=== PATIENT | female | born 1985 | race African-American/Black ===

== ENCOUNTER 2016-08-19 22:57 | Emergency (ER) | payer OTHER ==
[~2016-08-19] VITALS: Ht 167.6 cm; Wt 54.4 kg
[2016-08-20] MEDS ORDERED: TDAP DIPH,PERTUSS,TET VAC/PF 0.5 ML DISP.SYRIN IM ONE ×2 (01:00→01:09)
[2016-08-20] MEDS ORDERED: IBUPROFEN 800 MG TABLET PO ONE (01:00)
[2016-08-20] MEDS ORDERED: IBUPROFEN 800 MG TABLET ONE (01:01)
[2016-08-20 01:20] LABS: *BILIRUBIN,URIN NEGATIVE (NEGATIVE); *BLOOD, URINE 1+ (NEGATIVE); *CLARITY,URINE CLOUDY (CLEAR); *COLOR,URINE YELLOW (YELLOW); *KETONES,URINE 2+ (NEGATIVE); *PROTEIN,URINE TRACE (NEGATIVE); LEUKOCYTE ESTERASE ,URINE NEGATIVE (NEGATIVE); NITRITE, URINE POSITIVE (NEGATIVE); UGLUCOSE NEGATIVE (NEGATIVE)
[2016-08-20 01:30] LABS: *URINE HCG, QUAL NEGATIVE (NEGATIVE); BACTERIA,URINE MANY /HPF (NONE SEEN); SQUAMOUS EPITHELIAL CELL,UR MANY /HPF (NONE SEEN)
--- NOTE | 2016-08-20 03:15 | NUR ---
Patient discharged to home in stable conditon. Written and verbal after care instructions given. Patient verbalizes understanding of instructions.
== END 2016-08-20 03:16 | disposition home or self-care (01) ==
LOC: ER 22:59
DX: S06.0X0A Concussion without loss of consciousness, initial encounter (principal); S13.4XXA Sprain of ligaments of cervical spine, initial encounter; R51 Headache; F10.20 Alcohol dependence, uncomplicated; F17.200 Nicotine dependence, unspecified, uncomplicated; Z88.8 Allergy status to other drugs, medicaments and biological substances; V89.2XXA Person injured in unspecified motor-vehicle accident, traffic, initial encounter; Y93.89 Activity, other specified; Y99.8 Other external cause status; Y92.89 Other specified places as the place of occurrence of the external cause
CPT/HCPCS: 70450; 72125; 84703; 90715; A4663

== ENCOUNTER 2016-12-25 23:01 | Emergency (ER) | payer OTHER ==
[~2016-12-25] VITALS: Ht 167.6 cm; Wt 54.4 kg
--- NOTE | 2016-12-25 23:10 | NUR ---
Pt ambulated to room with steady gait. Pt c/o chest pressure and back pain all day. Sts she woke up with worsen pain. Pt placed on monitor NSR, ekg obtained. Pt resting in position of comfort for self, awaiting further eval.
[2016-12-25] MEDS ORDERED: ELVI1TAB3 PO (23:23)
[2016-12-25 23:34] LABS: BASOPHILS # (AUTO) 0.2 K/uL (0.0-8.0); BASOPHILS % (AUTO) 2.3 % (0.0-2.0); EOSINOPHILS % (AUTO) 0.6 % (0.0-7.0); HEMATOCRIT 39.4 % (37-47); HEMOGLOBIN 13.4 G/DL (12.0-16.0); LYMPHOCYTES # (AUTO) 1.7 K/UL (0.8-4.8); LYMPHOCYTES % (AUTO) 26.6 % (20.5-51.5); MEAN CORPUSCULAR HEMOGLOBIN 33.5 UUG (27.0-31.0); MEAN CORPUSCULAR HGB CONC 34 g/dL (32.0-37.0); MEAN CORPUSCULAR VOLUME 98.2 FL (81.0-99.0); MONOCYTES # (AUTO) 0.5 K/UL (0.1-1.30); NEUTROPHILS # (AUTO) 4.1 K/UL (1.8-8.9); NEUTROPHILS % (AUTO) 62.5 % (38.5-71.5); PLATELET COUNT (AUTO) 282 K/UL (150-450); RED BLOOD CELL COUNT(AUTO) 4.01 MIL/UL (4.2-5.4); WHITE BLOOD COUNT (AUTO) 6.5 K/UL (4.0-11.2)
[2016-12-25 23:41] LABS: CREATININE 0.9 mg/dL (0.6-1.3); POTASSIUM 3.5 mmol/L (3.5-5.1)
--- NOTE | 2016-12-25 23:50 | NUR ---
Chest pressure resolved with nitro SL. Cont to c/o back pain. Pt medicated for discomfort, will monitor for effects of medication. Fluid bolus completed at this time
[2016-12-25 23:53] LABS: BILIRUBIN,DIRECT 0.1 mg/dL (0.0-0.2); BILIRUBIN,TOTAL 0.3 mg/dL (0.2-1.0); TOTAL PROTEIN, SERUM 7.4 g/dL (6.4-8.2)
--- NOTE | 2016-12-26 00:25 | NUR ---
Pt sts she is feeling better and is pain free. Pt stable for discharge per Dr. Walsh. IV dc'd, catheter intact. Drsg applied. No problem noted to site. Pt given ACI. Pt verbalized understanding of dc instructions. Pt ambulated out of ER with steady gait.
[2016-12-26 00:42] VITALS: BP 110/50
== END 2016-12-26 00:25 | disposition home or self-care (01) ==
LOC: ER 23:05
DX: R07.89 Other chest pain (principal); M54.6 Pain in thoracic spine; F17.200 Nicotine dependence, unspecified, uncomplicated
CPT/HCPCS: 36415; 70030-TC; 71010; 85025; 85730; 93005; A4663; J1885; J7030

== ENCOUNTER 2017-04-27 08:34 | Inpatient (IN) | payer OTHER ==
[~2017-04-27] VITALS: Ht 167.6 cm; Wt 54.4 kg
[~2017-04-27 08:34] MED LIST: ELVI1TAB3 PO
[2017-04-27 08:53] LABS: *BILIRUBIN,URIN NEGATIVE (NEGATIVE); *BLOOD, URINE 3+ (NEGATIVE); *CLARITY,URINE SLIGHTLY CLOUDY (CLEAR); *COLOR,URINE AMBER (YELLOW); *KETONES,URINE NEGATIVE (NEGATIVE); *PROTEIN,URINE 1+ (NEGATIVE); *UROBILINOGEN,URINE 0.2 E.U./dl (NORMAL); LEUKOCYTE ESTERASE ,URINE TRACE (NEGATIVE); NITRITE, URINE NEGATIVE (NEGATIVE); PH,URINE 5.5 (5.0-8.0); UGLUCOSE NEGATIVE (NEGATIVE)
[2017-04-27] MEDS ORDERED: HYDROMORPHONE 1 MG/1 ML DISP.SYRIN IV ONE ×2 (09:00→10:00)
[2017-04-27] MEDS ORDERED: ONDANSETRON 4 MG/2 ML VIAL IV ONE ×2 (09:00→11:45)
[2017-04-27] MEDS ORDERED: IV NORMAL SALINE 1000 ML BAG IV ONE (09:00)
[2017-04-27 09:15] LABS: *URINE HCG, QUAL NEGATIVE (NEGATIVE)
[2017-04-27 09:15] LABS: BASOPHILS % (AUTO) 0.4 % (0.0-2.0); EOSINOPHILS # (AUTO) 0.1 K/uL (0.0-0.7); HEMATOCRIT 39.3 % (31.2-41.9); HEMOGLOBIN 13.3 g/dL (10.9-14.3); LYMPHOCYTES # (AUTO) 1.3 K/uL (20.0-40.0); LYMPHOCYTES % (AUTO) 14.2 % (20.5-51.5); MEAN CORPUSCULAR HEMOGLOBIN 32.9 uug (24.7-32.8); MEAN CORPUSCULAR HGB CONC 34 g/dL (32.3-35.6); MEAN CORPUSCULAR VOLUME 97.1 fL (75.5-95.3); MONOCYTES # (AUTO) 0.9 K/uL (2.0-10.0); MONOCYTES % (AUTO) 10.1 % (0.0-11.0); NEUTROPHILS # (AUTO) 6.6 K/uL (1.8-8.9); NEUTROPHILS % (AUTO) 74.3 % (38.5-71.5); PLATELET COUNT (AUTO) 251 K/uL (179-408); RED BLOOD CELL COUNT(AUTO) 4.04 MIL/uL (3.63-4.92); WHITE BLOOD COUNT (AUTO) 8.8 K/uL (3.8-11.8)
[2017-04-27 09:18] LABS: BACTERIA,URINE FEW /HPF (NONE SEEN); RBC,URINE 80-100 /HPF (0-3); SQUAMOUS EPITHELIAL CELL,UR FEW /HPF (NONE SEEN)
[2017-04-27] MEDS ORDERED: HYDROMORPHONE 2 MG/1 ML DISP.SYRIN ONE ×2 (09:30→10:26)
[2017-04-27] MEDS ORDERED: ONDANSETRON 4 MG/2 ML VIAL ONE ×3 (09:30→11:53)
[2017-04-27] MEDS ORDERED: CEFTRIAXONE 2 G in IV DEXTROSE 5% 100 ML IV ONE (09:30)
[2017-04-27 09:31] LABS: BILIRUBIN,DIRECT 0.1 mg/dL (0.0-0.2); BILIRUBIN,TOTAL 0.4 mg/dL (0.2-1.0); CREATININE 3.3 mg/dL (0.6-1.3); POTASSIUM 4.1 mmol/L (3.5-5.1); TOTAL PROTEIN, SERUM 7.7 g/dL (6.4-8.2)
[2017-04-27] MEDS ORDERED: CEFTRIAXONE 1 G VIAL ONE (09:57)
[2017-04-27] MEDS ORDERED: ONDANSETRON IV *ER 4 MG/2 ML VIAL IV ONE (10:00)
[2017-04-27] MEDS ORDERED: CIPR-263 PO (11:24)
[2017-04-27] MEDS ORDERED: CHOL10005 PO (11:24)
[2017-04-27] MEDS ORDERED: IBUP-1953 PO (11:24)
--- NOTE | 2017-04-27 11:24 | NUR ---
MEDICATIONS RECONCILED WITH PATIENT BEST SHE CAN REMEMBER CURRENTLY.
--- NOTE | 2017-04-27 11:39 | NUR ---
pt transfered to floor in stable condition.
[2017-04-27] MEDS ORDERED: HYDROMORPHONE 1 MG/1 ML DISP.SYRIN IV PRN ×2 (11:45→12:30)
--- NOTE | 2017-04-27 11:45 | NUR ---
RECEIVED PATIENT FOR ADMISSION 31 YEARS OLD TO ROOM 214 BY DONOVAN WITH DX OF ACUTE RENAL FAILURE PLACED INTO BED FIXED AND MADE COMFORTABLE PATIENT IS ALERT AND ORIENTED STATED HAS GENERALISED PAIN ASSEMBLING MOTOR BUILDER KALLIE HERE AND AWARE AND SHE STATED WILL SEE PATIENT.ON ROOM AIR WITH NO SHORTNESS OF BREATH AT THIS TIME.HEPLOCK LEFT ANTECUBITAL REMAINS INTACT FLUSHED PER PROTOCOL.
[2017-04-27] MEDS ORDERED: MORPHINE SULFATE 4 MG/1 ML DISP.SYRIN ONE (11:53)
--- NOTE | 2017-04-27 11:55 | NUR ---
Morphine sulfate 1mg IVP x1 given per Dr Walsh order. See paper order.
[2017-04-27] MEDS ORDERED: Z GUARD REMEDY PASTE 57 GM TUBE TOP PRN (12:00)
[2017-04-27] MEDS ORDERED: ZOLPIDEM 5 MG TABLET PO PRN (12:00)
[2017-04-27] MEDS ORDERED: ONDANSETRON 4 MG/2 ML VIAL IV PRN (12:00)
[2017-04-27] MEDS ORDERED: HYDROCODONE/APAP 5-325MG TABLET PO PRN (12:00)
[2017-04-27] MEDS ORDERED: MAGNESIUM HYDROXIDE 30 ML LIQUID UDC PO PRN (12:00)
[2017-04-27] MEDS ORDERED: ACETAMINOPHEN 325 MG TABLET PO PRN (12:00)
[2017-04-27] MEDS ORDERED: MORPHINE SULFATE 4 MG/1 ML DISP.SYRIN IV PRN (12:15)
[2017-04-27] MEDS ORDERED: MORPHINE SULFATE 2 MG/1 ML DISP.SYRIN IV PRN (12:15)
[2017-04-27 12:17] VITALS: BP 122/68
[2017-04-27] MEDS: IV NS 1000 ML 1,000 ML IV PRN (12:30)
[2017-04-27] MEDS: HYDROMORPHONE 2 MG/1 ML DISP.SYRIN IV PRN ×3 (12:31→21:10)
--- NOTE | 2017-04-27 15:00 | NUR ---
PATIENT COMPLAINING THAT SHE IS ITCHING NO REDNESS OR RASHES NOTED ALSO HAS NAUSEA AND HER ZOFRAN IS ORDERED FOR Q4H CALLED AND NOTIFIED KALLIE ADMINISTRATIVE AND PROGRAM SPECIALIST AWAITING FOR RETURN CALL.PATIENT AWARE.
--- NOTE | 2017-04-27 15:15 | NUR ---
KALLIE ALSO NOTIFIED RE RESULT OF THE CAT SCAN OF THE ABDOMEN AND PELVIS WITH NO NEW ORDERS AT THIS TIME.
[2017-04-27] MEDS: ONDANSETRON 4 MG/2 ML VIAL IV PRN ×2 (15:31→21:10)
[2017-04-27] MEDS: diphenhydrAMINE 50 MG/1 ML VIAL IV PRN ×2 (15:31→21:09)
[2017-04-27 15:34] VITALS: BP 104/42
[2017-04-27 16:15] LABS: *BILIRUBIN,URIN NEGATIVE (NEGATIVE); *BLOOD, URINE 3+ (NEGATIVE); *CLARITY,URINE SLIGHTLY CLOUDY (CLEAR); *COLOR,URINE YELLOW (YELLOW); *KETONES,URINE TRACE (NEGATIVE); *PROTEIN,URINE 1+ (NEGATIVE); *UROBILINOGEN,URINE 0.2 E.U./dl (NORMAL); LEUKOCYTE ESTERASE ,URINE NEGATIVE (NEGATIVE); NITRITE, URINE NEGATIVE (NEGATIVE); UGLUCOSE NEGATIVE (NEGATIVE)
[2017-04-27 16:40] LABS: *CREATININE,URINE 113.6 mg/dL (30-125); *URINE TOTAL PROTEIN RANDOM 41.3 mg/dL (<150/24HR)
[2017-04-27 17:02] LABS: BACTERIA,URINE NONE SEEN /HPF (NONE SEEN); RBC,URINE 80-100 /HPF (0-3); SQUAMOUS EPITHELIAL CELL,UR FEW /HPF (NONE SEEN); WBC,URINE 0-3 /HPF (0-3)
--- NOTE | 2017-04-27 18:26 | NUR ---
PAIN MEDICATIONS BENADRYL AND ZOFRAN GIVEN ORDERED AND STATED HELPFUL.ASSISTED TO THE BATHROOM VOIDED WELL WILL CONTINUE TO OBSERVE.
--- NOTE | 2017-04-27 19:30 | NUR ---
Received patient laying comfortably in bed. No acute distress noted. A&O x 4. Tele Sinus Alcon Sinus Rhythm. IVF infusing on the left AC. Skin intact. C/o pain in the lower back. Safety initiated. Call light within reach. Room is left clutter free. Will continue to monitor.
[2017-04-27 19:51] VITALS: BP 126/69
[2017-04-28 00:50] VITALS: BP 126/42
[2017-04-28] MEDS: HYDROMORPHONE 2 MG/1 ML DISP.SYRIN IV PRN ×3 (02:02→13:57)
[2017-04-28] MEDS: ONDANSETRON 4 MG/2 ML VIAL IV PRN ×3 (02:02→13:57)
[2017-04-28] MEDS: diphenhydrAMINE 50 MG/1 ML VIAL IV PRN ×2 (04:03→10:07)
[2017-04-28 04:53] VITALS: BP 107/63
--- NOTE | 2017-04-28 05:29 | NUR ---
Patient slept intermittently t/o shift. C/o lower back pain, nausea and vomiting. Meds given, stated relief. No BM yet. Gave MOM. Urinating ok. Safety and comfort measures maintained t/o. Room is kept clutter free. All meds given as ordered. All needs met. Vital signs stable.
[2017-04-28 05:48] LABS: BASOPHILS % (AUTO) 0.5 % (0.0-2.0); EOSINOPHILS # (AUTO) 0.1 K/uL (0.0-0.7); EOSINOPHILS % (AUTO) 1.2 % (0.0-7.0); HEMATOCRIT 33.8 % (31.2-41.9); HEMOGLOBIN 11.4 g/dL (10.9-14.3); LYMPHOCYTES # (AUTO) 1.8 K/uL (20.0-40.0); LYMPHOCYTES % (AUTO) 27.4 % (20.5-51.5); MEAN CORPUSCULAR HEMOGLOBIN 33.1 uug (24.7-32.8); MEAN CORPUSCULAR HGB CONC 34 g/dL (32.3-35.6); MEAN CORPUSCULAR VOLUME 97.7 fL (75.5-95.3); MONOCYTES # (AUTO) 0.7 K/uL (2.0-10.0); MONOCYTES % (AUTO) 10.2 % (0.0-11.0); NEUTROPHILS % (AUTO) 60.7 % (38.5-71.5); PLATELET COUNT (AUTO) 221 K/uL (179-408); RED BLOOD CELL COUNT(AUTO) 3.46 MIL/uL (3.63-4.92); WHITE BLOOD COUNT (AUTO) 6.6 K/uL (3.8-11.8)
[2017-04-28 06:03] LABS: BILIRUBIN,TOTAL 0.3 mg/dL (0.2-1.0); MAGNESIUM 1.9 mg/dL (1.8-2.4); PHOSPHOROUS 3.3 mg/dL (2.5-4.9); TOTAL PROTEIN, SERUM 6.3 g/dL (6.4-8.2)
--- NOTE | 2017-04-28 08:00 | NUR ---
Patient is on tele monitor sinus junaid [id number]
[2017-04-28] MEDS: IV NS 1000 ML 1,000 ML IV PRN (08:56)
[2017-04-28] MEDS ORDERED: CEFTRIAXONE 1 G in IV NORMAL SALINE 50 ML IV SCH (09:00)
[2017-04-28 11:38] VITALS: BP 124/84
[2017-04-28] MEDS ORDERED: [UNRECOGNIZED DRUG - OTHER] PO SCH (12:00)
[2017-04-28] MEDS ORDERED: Medication Not On Formulary EA (Cholecalciferol (Vitamin D3) (Vitamin D CAPSULE) 1 CAP) PO SCH (12:00)
[2017-04-28] MEDS ORDERED: CHOLECALCIFEROL 1,000 UNIT TABLET PO SCH (12:15)
[2017-04-28] MEDS ORDERED: PETROLATUM,WHITE JELLY 28.35 GM TUBE TP PRN (12:15)
--- NOTE | 2017-04-28 12:15 | NUR ---
Patient stated her girlfriend is able to bring her home medications (HAART) to the [facility]. Pharmacy notified.
--- NOTE | 2017-04-28 13:35 | NUR ---
Patient left the unit without permission. Pt found going out of the ER into the driveway to meet her son and girl friend. Patient insisted on bringing her 5 year old son to the unit with her. Explained hospital policy but patient refused to listen and was very upset, threatening to either leave the hospital or have her son stay in the med surge unit room with her. Patient's friend offered to watch her son. Patient finally went up to the med surge unit and into her room. Patient stated "I'm not going to escape again". Security, granite polisher machine & hospital staff aware. Safety measures in place. Will keep close watch and continue to monitor.
[2017-04-28 15:29] VITALS: BP 125/80
--- NOTE | 2017-04-28 18:05 | NUR ---
Patient left AMA. When asked the reason why she wants to leave, patient stated "I have my personal reasons". Patient signed AMA form. IV access removed, ID band removed. Patient left the unit ambulatory with family. Patient is alert, in no distress.
[2017-04-29] MEDS ORDERED: CHOLECALCIFEROL 1,000 UNIT TABLET PO SCH (09:00)
[2017-04-30 05:06] LABS: A/G RATIO 1.4 (0.7-1.7); ALBUMIN 3.4 g/dL (2.9-4.4); ALPHA-1-GLOBULIN 0.2 g/dL (0.0-0.4); ALPHA-2-GLOBULIN 0.6 g/dL (0.4-1.0); BETA GLOBULIN 0.8 g/dL (0.7-1.3); GAMMA GLOBULIN 0.8 g/dL (0.4-1.8); GLOBULIN, TOTAL 2.5 g/dL (2.2-3.9); M-SPIKE Not Observed g/dL (Not Observed)
== END 2017-04-28 18:00 | disposition left against medical advice (07) | DRG 463 ==
LOC: ER 08:34 → TELE 11:21
PROVIDERS: ATTEND Nurse Practitioner Acute Care
DX: N12 Tubulo-interstitial nephritis, not specified as acute or chronic (principal); N17.0 Acute kidney failure with tubular necrosis; B96.89 Other specified bacterial agents as the cause of diseases classified elsewhere; F17.210 Nicotine dependence, cigarettes, uncomplicated; K59.00 Constipation, unspecified; Z79.899 Other long term (current) drug therapy; N76.0 Acute vaginitis; R31.9 Hematuria, unspecified; Z87.820 Personal history of traumatic brain injury; T37.5X5A Adverse effect of antiviral drugs, initial encounter; Y92.89 Other specified places as the place of occurrence of the external cause
CPT/HCPCS: 36415; 76770; 83690; 83735; 83970; 84100; 84155; 84156; 84165; 84300; 84703; 85025; 87086; 93005; A4663; J0696; J1170; J1200; J2270; J2405; J3490; J7030

== ENCOUNTER 2017-04-30 20:37 | Inpatient (IN) | payer OTHER ==
[~2017-04-30] VITALS: Ht 167.6 cm; Wt 54.4 kg
[~2017-04-30 20:37] MED LIST changes: +CHOL10005 PO; +CIPR-263 PO; +IBUP-1953 PO
[2017-04-30] MEDS: HYDROMORPHONE 1 MG/1 ML DISP.SYRIN IV ONE ×2 (22:10→22:28)
[2017-04-30] MEDS ORDERED: IV NORMAL SALINE 1000 ML BAG IV ONE (22:15)
[2017-04-30] MEDS ORDERED: ONDANSETRON 4 MG/2 ML VIAL IV ONE (22:15)
[2017-04-30] MEDS ORDERED: diphenhydrAMINE 50 MG/1 ML VIAL ONE (22:20)
[2017-04-30] MEDS ORDERED: ONDANSETRON 4 MG/2 ML VIAL ONE (22:21)
[2017-04-30] MEDS ORDERED: HYDROMORPHONE 2 MG/1 ML DISP.SYRIN ONE (22:21)
[2017-04-30 22:22] LABS: BASOPHILS # (AUTO) 0.1 K/uL (0.0-8.0); BASOPHILS % (AUTO) 0.9 % (0.0-2.0); EOSINOPHILS # (AUTO) 0.1 K/uL (0.0-0.7); EOSINOPHILS % (AUTO) 1.6 % (0.0-7.0); HEMATOCRIT 38.1 % (31.2-41.9); HEMOGLOBIN 13.1 g/dL (10.9-14.3); LYMPHOCYTES # (AUTO) 2.4 K/uL (20.0-40.0); MEAN CORPUSCULAR HEMOGLOBIN 33.3 uug (24.7-32.8); MEAN CORPUSCULAR HGB CONC 34 g/dL (32.3-35.6); MEAN CORPUSCULAR VOLUME 96.6 fL (75.5-95.3); MONOCYTES # (AUTO) 0.7 K/uL (2.0-10.0); MONOCYTES % (AUTO) 9.6 % (0.0-11.0); NEUTROPHILS # (AUTO) 4.1 K/uL (1.8-8.9); NEUTROPHILS % (AUTO) 54.9 % (38.5-71.5); PLATELET COUNT (AUTO) 309 K/uL (179-408); RED BLOOD CELL COUNT(AUTO) 3.94 MIL/uL (3.63-4.92); WHITE BLOOD COUNT (AUTO) 7.4 K/uL (3.8-11.8)
[2017-04-30 22:24] LABS: *BILIRUBIN,URIN NEGATIVE (NEGATIVE); *BLOOD, URINE 1+ (NEGATIVE); *CLARITY,URINE SLIGHTLY CLOUDY (CLEAR); *COLOR,URINE YELLOW (YELLOW); *KETONES,URINE NEGATIVE (NEGATIVE); *PROTEIN,URINE NEGATIVE (NEGATIVE); *UROBILINOGEN,URINE 0.2 E.U./dl (NORMAL); LEUKOCYTE ESTERASE ,URINE 1+ (NEGATIVE); NITRITE, URINE NEGATIVE (NEGATIVE); UGLUCOSE NEGATIVE (NEGATIVE)
[2017-04-30] MEDS ORDERED: diphenhydrAMINE 50 MG/1 ML VIAL IV ONE (22:30)
[2017-04-30 22:35] LABS: CREATININE 1.2 mg/dL (0.6-1.3); POTASSIUM 3.4 mmol/L (3.5-5.1)
[2017-04-30 22:41] LABS: BILIRUBIN,DIRECT 0.1 mg/dL (0.0-0.2); BILIRUBIN,TOTAL 0.2 mg/dL (0.2-1.0); TOTAL PROTEIN, SERUM 7.7 g/dL (6.4-8.2)
[2017-04-30 22:45] LABS: BACTERIA,URINE FEW /HPF (NONE SEEN); SQUAMOUS EPITHELIAL CELL,UR MODERATE /HPF (NONE SEEN)
[2017-04-30 22:46] LABS: TRICHOMONAS,URINE MODERATE /HPF (NONE SEEN)
[2017-05-01] MEDS ORDERED: CEFTRIAXONE 1 G in IV DEXTROSE 5% 50 ML IV ONE (00:15)
[2017-05-01] MEDS ORDERED: CEFTRIAXONE 1 G VIAL ONE (00:16)
--- NOTE | 2017-05-01 00:28 | NUR ---
Pt. admitted to [facility], under care of Claude Escudero (JASON) Belongs List completed
[2017-05-01] MEDS ORDERED: HYDROCODONE/APAP 5-325MG TABLET PO PRN (00:30)
[2017-05-01] MEDS ORDERED: CEFTRIAXONE 1 G in IV DEXTROSE 5% 50 ML IV SCH (00:30)
[2017-05-01] MEDS ORDERED: MORPHINE SULFATE 2 MG/1 ML DISP.SYRIN IV PRN (00:30)
[2017-05-01] MEDS ORDERED: ONDANSETRON 4 MG/2 ML VIAL IV PRN (00:30)
[2017-05-01] MEDS ORDERED: Z GUARD REMEDY PASTE 57 GM TUBE TOP PRN (00:30)
[2017-05-01] MEDS ORDERED: MAGNESIUM HYDROXIDE 30 ML LIQUID UDC PO PRN (00:30)
[2017-05-01] MEDS ORDERED: ACETAMINOPHEN 325 MG TABLET PO PRN (00:30)
--- NOTE | 2017-05-01 00:35 | NUR ---
RECEIVED PATIENT VIA W/C FROM ER. PATIENT IS A/O X4. VSS. H/L INTACT AND PATENT NOTED TO RIGHT FA #20 GAUGE. WHEN APPROACHED, PATIENT IS VERY RUDE AND HOSTILE, DEMANDING FOR PAIN MEDICATION. DURING REPORT FROM ER NURSE, PATIENT WAS PREVIOUSLY MEDICATED PRIOR TO COMING UP TO THE FLOOR. INFORMED PATIENT THAT CHUTE GREASER ORDERED, MS 2MG IVP. PATIENT VERBALIZED UNDERSTANDING. PATIENT ORIENTED TO ROOM AND CALL LIGHT. CALL LIGHT IN REACH. ALL NEEDS ATTENDED, WILL CONTINUE TO MONITOR AND ASSESS.
[2017-05-01 00:51] VITALS: BP 123/84
[2017-05-01] MEDS ORDERED: MORPHINE SULFATE 4 MG/1 ML DISP.SYRIN ONE (01:01)
--- NOTE | 2017-05-01 01:05 | NUR ---
PATIENT GIVEN MORPHINE 2MG IV PER TOBACCO DIPPER FOR PAIN.
--- NOTE | 2017-05-01 01:45 | NUR ---
PATIENT AWAKE IN BED, MAD AND UPSET THAT SHE DOESN'T HAVE DILAUDID, THE SAME MEDICATION GIVEN IN ER. PATIENT IS ALSO DEMANDING THAT SHE GETS, "DILAUDID, BENADRYL AND ZOFRAN ALL AT THE SAME TIME." INFORMED PATIENT THAT JOSE SANTOS, CLINICAL ASSISTANT PROFESSOR IS RANGE EXAMINER AND ORDERED MORPHINE FOR PAIN. INFORMED PATIENT THAT CLINICAL ASSISTANT PROFESSOR WOULD BE CALLED FOR FURTHER ORDERS.
--- NOTE | 2017-05-01 01:50 | NUR ---
SPOKE WITH JOSE SANTOS NP AND INFORMED HIM OF PATIENTS REQUESTS. NO NEW ORDERS AT THIS TIME. PATIENT INFORMED THAT MORPHINE 2MG IV IS ORDERED EVERY 2 HOURS PRN. PATIENT THEN STARTED TO YELL, "WHY THE FUCK ARE YOU DOING THIS TO ME!!!" PATIENT INFORMED THAT MD/HEDGE FUND PRINCIPAL IS THE ONE WHO MAKES AND ORDERS ALL THE MEDS. ALL NEEDS ATTENDED. SECURITY TESTER NOTIFIED.
--- NOTE | 2017-05-01 01:55 | NUR ---
PATIENT AT NURSING STATION, YELLING AND SCREAMING AT STAFF, 'WHY I AM NOT GETTING ANYTHING DONE." PATIENT INFORMED THAT ALL ORDERS WERE ALREADY PUT IN AND ALSO INFORMED THAT IV ANTIBIOTICS WERE GIVEN FOR INFECTION. PATIENT BECAME VERY LOUD AND VERBALLY AGGRESSIVE. PATIENT STARTED USING FOUL LANGUAGE AND VERBALIZED PHYSICAL THREATS TOWARDS STAFF.
--- NOTE | 2017-05-01 02:02 | NUR ---
CALLED SECURITY FOR BACK-UP. PATIENT IS STILL YELLING, SCREAMING AND MAKING THREATENING REMARKS TOWARDS STAFF. RN IRRIGATOR GRAVITY FLOW CALLED.
--- NOTE | 2017-05-01 02:20 | NUR ---
PATIENT LEFT FLOOR AND WALKED BACK DOWN TO ER. FUND RAISER AND CNA PCT AWARE.
--- NOTE | 2017-05-01 02:32 | NUR ---
Patient returned to ER complaining that she was not getting the medicine she wanted on [facility] unit. ERMD notified, stated patient was seen and admitted. Patient can return upstairs for appropriate treatment or can sign out against medical advice. General Utility Maintenance Repairer notified. MS charge nurse and ER charge nurse aware. Security at bedside for safety due to patient threatening physical safety of nursing staff on [facility] unit.
--- NOTE | 2017-05-01 02:50 | NUR ---
PATIENT ESCORTED BACK UP TO FLOOR. REPORT GIVEN TO RN. ALL NEEDS ATTENDED.
--- NOTE | 2017-05-01 03:00 | NUR ---
RECEIVED PT AWAKE, ALERT, ORIENTED X4. HANDSOFF REPORT GIVEN BY THOMAS HAQUE. PT ASKING FOR PAIN MEDICATIONS HIGHER THAN MORPHINE 2MG BECAAUSE SHE STATE,"IT DOSN'T WORK ON HER." SHE ALSO WANTS BENADRYL TO GO WITH IT BECAUSE SHE SAID SHE IS ITCHING. ADVISED THE PT THAT THE DRBhanu JUST PRESCRIBED WHAT WE HAVE BUT NO BENADRYL AND HIGHER DOSE OF PAIN MEDICATION.PT AWARE. CHARGE NURSE AWARE ALSO OF THE SITUATION. PT WANTS INFORMATION FOR ADVANCE DIRECTIVE. PT IV INTACT AND PATENT. CALL LIGHT WITHIN REACH AND BED ALARM ON. SAFETY AND COMFORT PROVIDED. WILL CONTINUE TO MONITOR.
--- NOTE | 2017-05-01 03:01 | NUR ---
ADMISSION PROCESS AND CARE PLAN INITIATED.SAFETY AND COMFORT PROVIDED. CALL LIGHT WITHIN REACH. WILL CONTINUE TO MONITOR.
[2017-05-01] MEDS: MORPHINE SULFATE 4 MG/1 ML DISP.SYRIN IV PRN ×3 (03:21→08:42)
[2017-05-01 04:30] VITALS: BP 143/97
[2017-05-01 07:54] LABS: *URINE HCG, QUAL NEGATIVE (NEGATIVE)
[2017-05-01] MEDS ORDERED: CHOLECALCIFEROL PO SCH (09:00)
[2017-05-01] MEDS ORDERED: CHOLECALCIFEROL 1,000 UNIT TABLET PO SCH (09:00)
[2017-05-01] MEDS ORDERED: [UNRECOGNIZED DRUG - OTHER] PO SCH (09:00)
[2017-05-01] MEDS ORDERED: HYDR-3326 PO (10:26)
[2017-05-01 11:08] VITALS: BP 116/62
--- NOTE | 2017-05-01 12:40 | NUR ---
PATIENT BEEN DISCHARGE HOME IN STABLE CONDITION. NO S/S OF DISTRESS OR PAIN NOTED. DISCHARGE INSTRUCTION WERE SIGNED. SUNGLASSES WERE NOT WHERE TO FOUND,IT WAS CHECKED ON THE BELONGINGS LIST. NOTIFIED ELIZABETH, IN FLIGHT TECHNICIAN AND ARGENIS MANAGER WORKERS COMPENSATION. PATIENT WAS ACCOMPANIED WITH FRIEND. SAFETY AND COMFORT PROVIDED BY STAFF.
[2017-05-02] MEDS ORDERED: CEFTRIAXONE 1 G in IV NORMAL SALINE 50 ML IV SCH ×2
[2017-05-02] MEDS ORDERED: [UNRECOGNIZED DRUG - OTHER] PO SCH (09:00)
== END 2017-05-01 12:00 | disposition home or self-care (01) | DRG 463 ==
LOC: ER 20:38 → MED 05-01 00:02
PROVIDERS: ADMIT Nurse Practitioner Acute Care; ATTEND Nurse Practitioner Acute Care
DX: N39.0 Urinary tract infection, site not specified (principal); N76.0 Acute vaginitis; Z79.899 Other long term (current) drug therapy
CPT/HCPCS: 36415; 83690; 84703; 85025; 87086; A4663; J0696; J1170; J1200; J2270; J2405; J3490; J7030; J7060

== ENCOUNTER 2017-12-01 16:23 | Emergency (ER) | payer OTHER ==
[~2017-12-01] VITALS: Ht 167.6 cm; Wt 54.4 kg
[~2017-12-01 16:23] MED LIST changes: +HYDR-3326 PO
[2017-12-01] MEDS ORDERED: IBUPROFEN 600 MG TABLET PO ONE (17:00)
[2017-12-01] MEDS ORDERED: HYDROCODONE/APAP 5-325MG TABLET PO ONE (17:00)
[2017-12-01] MEDS ORDERED: ALBUTEROL SULFATE 2.5 MG/ 0.5 ML NEBU NEB ONE (17:00)
[2017-12-01] MEDS ORDERED: ALBUTEROL SULFATE 2.5 MG/3 ML NEBU ONE (17:05)
[2017-12-01] MEDS ORDERED: IBUPROFEN 600 MG TABLET ONE (17:07)
[2017-12-01] MEDS ORDERED: HYDROCODONE/APAP 5-325MG TABLET ONE (17:08)
[2017-12-01] MEDS ORDERED: GUAIFENESIN/CODEINE 5 ML LIQUID UDC PO ONE (17:15)
[2017-12-01] MEDS ORDERED: GUAIFENESIN/CODEINE 5 ML LIQUID UDC ONE (17:16)
--- NOTE | 2017-12-01 17:40 | NUR ---
PT LEFT THE ER SAYING THAT HAS TO TAKE CARE OF HER KID.
--- NOTE | 2017-12-01 18:07 | NUR ---
PT WALKED BACK INTO ER. ER AT BEDSIDE
[2017-12-01] MEDS ORDERED: AZITHROMYCIN 250 MG TABLET ONE (18:12)
[2017-12-01] MEDS ORDERED: AZITHROMYCIN 250 MG TABLET PO ONE (18:15)
--- NOTE | 2017-12-01 18:20 | NUR ---
Patient discharged to home in stable conditon. Written and verbal after care instructions given. Patient verbalizes understanding of instructions.PT WALKS IN STEADY GAIT. PT EUBREATHING, NO SIGN OF DISTRESS.
[2017-12-01 19:03] VITALS: BP 121/85
--- NOTE | 2017-12-01 19:03 | NUR ---
Patient discharged to home in stable conditon. Written and verbal after care instructions given. Patient verbalizes understanding of instructions.
== END 2017-12-01 19:04 | disposition home or self-care (01) ==
LOC: ER 16:26
DX: J20.9 Acute bronchitis, unspecified (principal); R51 Headache; B20 Human immunodeficiency virus [HIV] disease; F17.200 Nicotine dependence, unspecified, uncomplicated; Z88.8 Allergy status to other drugs, medicaments and biological substances
CPT/HCPCS: 71046; 94640; 99284; A4663; Q0144